=== PATIENT | male | born 1955 | race Two or more races ===

== ENCOUNTER 2018-08-15 09:58 | Inpatient (IN) | payer MEDICAID ==
[~2018-08-15] VITALS: Ht 177.8 cm; Wt 90.7 kg
--- NOTE | 2018-08-15 09:58 | NUR ---
PT BIB FROM [facility] FOR FIRST TIME SEIZURE; PT [id number], PT ON MONITOR, -SOB, NAD NOTED, PENDING MD CADE
--- NOTE | 2018-08-15 10:08 | NUR ---
DR GOEL AT BEDSIDE FOR EVAL.
[2018-08-15] MEDS ORDERED: ACETAMINOPHEN ES 500 MG TABLET ONE (10:23)
--- NOTE | 2018-08-15 10:26 | NUR ---
PT TO RADIOLOGY FOR HEAD CT SCAN VIA [facility].
[2018-08-15] MEDS ORDERED: IV NS 0.9% 1,000 ML BAG IV ONE (10:30)
[2018-08-15] MEDS ORDERED: ACETAMINOPHEN ES 500 MG TABLET GT ONE (10:30)
[2018-08-15 10:31] LABS: BASOPHILS # (AUTO) 0.1 /CMM (0.0-0.2); BASOPHILS % (AUTO) 1.1 % (0.0-2.0); EOSINOPHILS % (AUTO) 1.5 % (0.0-6.0); HEMATOCRIT 42 % (39-51); HEMOGLOBIN 14.1 g/dL (13.5-17.5); LYMPHOCYTES # (AUTO) 0.6 /CMM (0.8-4.8); LYMPHOCYTES % (AUTO) 7.3 % (20.0-44.0); MEAN CORPUSCULAR HGB CONC 33 g/dl (31.0-36.0); MEAN CORPUSCULAR VOLUME 95 fL (80-96); NEUTROPHILS # (AUTO) 6.9 /CMM (1.8-8.9); NEUTROPHILS % (AUTO) 79.1 % (43.0-81.0); PLATELET COUNT (AUTO) 146 /CMM (150-450); RED BLOOD CELL COUNT(AUTO) 4.46 MIL/uL (4.5-6.0); WHITE BLOOD COUNT (AUTO) 8.8 K/uL (4.3-11.0)
[2018-08-15] MEDS ORDERED: POLY15DR40 EACHEYE (10:36)
[2018-08-15] MEDS ORDERED: BUDE0.5A4 IH (10:36)
[2018-08-15] MEDS ORDERED: MULT-447 GT (10:36)
[2018-08-15] MEDS ORDERED: METO25TA20 GT (10:36)
[2018-08-15] MEDS ORDERED: HEPA50008 SQ (10:36)
[2018-08-15] MEDS ORDERED: DOCU50LI GT (10:36)
[2018-08-15] MEDS ORDERED: NA P133E RC (10:36)
[2018-08-15] MEDS ORDERED: ACET650S26 GT (10:36)
[2018-08-15] MEDS ORDERED: ASPI-1169 GT (10:36)
[2018-08-15] MEDS ORDERED: ATOR10TA GT (10:36)
[2018-08-15] MEDS ORDERED: ALBU2.5V38 IH ×2 (10:36)
[2018-08-15] MEDS ORDERED: ACET-2605 GT (10:36)
[2018-08-15] MEDS ORDERED: DILT180C GT (10:36)
[2018-08-15] MEDS ORDERED: LACT100027 GT (10:36)
[2018-08-15] MEDS ORDERED: BETH50TA8 GT (10:36)
[2018-08-15] MEDS ORDERED: TRAM50TA2 GT (10:36)
[2018-08-15] MEDS ORDERED: MAGN400O6 GT (10:36)
[2018-08-15] MEDS ORDERED: TAMS-12 GT (10:36)
[2018-08-15] MEDS ORDERED: BISA10SU11 RC (10:36)
[2018-08-15] MEDS ORDERED: NUTR1PAC14 GT (10:36)
--- NOTE | 2018-08-15 10:40 | NUR ---
[facility] 112-2.
[2018-08-15 10:52] LABS: CARBON DIOXIDE 29 mmol/L (21-32); CHLORIDE 102 mmol/L (98-107); GLUCOSE 107 mg/dL (74-106); POTASSIUM 4.1 mmol/L (3.5-5.1); SODIUM SERUM 133 mmol/L (136-145); UREA NITROGEN, BLOOD 35 mg/dL (7-18)
[2018-08-15 10:57] LABS: ALANINE AMINOTRANSFERASE 38 U/L (12-78); ALBUMIN 2.7 g/dL (3.4-5.0); ALKALINE PHOSPHATASE 108 U/L (46-116); ASPARTATE AMINOTRANSFERASE 27 U/L (15-37); BILIRUBIN,DIRECT 0.1 mg/dL (0.0-0.2); BILIRUBIN,TOTAL 0.3 mg/dL (0.2-1.0); CALCIUM, SERUM 8.1 mg/dL (8.5-10.1); TOTAL PROTEIN, SERUM 7.4 g/dL (6.4-8.2)
[2018-08-15 11:15] LABS: APPEARANCE,URINE Clear (CLEAR); BILIRUBIN,URINE Negative (NEGATIVE); BLOOD, URINE Small Ery/uL (NEGATIVE); COLOR,URINE Yellow (YELLOW); KETONES,URINE Negative (NEGATIVE); LEUKOCYTE ESTERASE ,URINE Negative (NEGATIVE); NITRITE, URINE Negative (NEGATIVE); PROTEIN,URINE 30 mg/dl (NEGATIVE); UGLUCOSE Negative (NEGATIVE); UROBILINOGEN,URINE 0.2 EU/dL (0.2)
--- NOTE | 2018-08-15 11:31 | NUR ---
REPORT GIVEN TO MARY HURTADO FOR OANH; PT WILL BE TRANSPORTED TO 1ST FLOOR [facility]
[2018-08-15 11:34] LABS: BACTERIA,URINE Few /HPF (None Seen); RBC,URINE 0-2 /HPF (0-2); SQUAMOUS EPITHELIAL CELL,UR Rare /HPF (None Seen); WBC,URINE 0-2 /HPF (0-3)
[2018-08-15 12:00] VITALS: BP 133/83
[2018-08-15] MEDS ORDERED: VANCOMYCIN 1 GM in IV D5W 250 ML IV ONE (12:00)
[2018-08-15] MEDS ORDERED: D5W IV ONE (12:00)
[2018-08-15] MEDS ORDERED: BISACODYL SUPP (10 MG) 10 MG/SUPP.RECT SUPP.RECT RC PRN (12:00)
[2018-08-15] MEDS ORDERED: CEFTRIAXONE 2 G in IV D5W 100 ML IV ONE (12:00)
[2018-08-15] MEDS ORDERED: ACYCLOVIR IV ONE (12:00)
--- NOTE | 2018-08-15 12:23 | NUR ---
PT TRANSPORTED TO [facility] VIA [facility]
[2018-08-15] MEDS ORDERED: ZOLPIDEM TARTRATE 5 MG TABLET PO PRN (12:30)
[2018-08-15] MEDS ORDERED: ACETAMINOPHEN 325 MG TABLET PO PRN (12:30)
[2018-08-15] MEDS ORDERED: Z GUARD REMEDY 2 OZ OINT TP PRN (12:30)
[2018-08-15] MEDS ORDERED: ONDANSETRON HCL/PF 4 MG/2 ML VIAL IVP PRN (12:30)
[2018-08-15] MEDS ORDERED: HYDROCODONE/APAP 5/325MG 1 EACH TABLET PO PRN (12:30)
[2018-08-15] MEDS ORDERED: ALBUTEROL FS 2.5 MG/0.5 ML VIAL.NEB NEB PRN (12:30)
[2018-08-15] MEDS ORDERED: MAG HYDROX/AL HYDROX/SIMETH 30 ML UDC PO PRN (12:30)
[2018-08-15] MEDS ORDERED: MAGNESIUM HYDROXIDE 30 ML UDC PO PRN (12:30)
[2018-08-15] MEDS ORDERED: MORPHINE SULFATE INJ 2 MG/ML DISP.SYRIN IV PRN (12:30)
[2018-08-15] MEDS ORDERED: LORAZEPAM INJ 2 MG/ML VIAL IV PRN (12:30)
--- NOTE | 2018-08-15 12:30 | NUR ---
RN NOTES RECEIVED PT FROM ER. PATIENT ARRIVED IN THE UNIT ACCOMPANIED BY BRYANT BHARDWAJ. RECEIVED REPORT, PATIENT WILL BE UNDER THE CARE OF LEELA ASH. PATIENT IN STABLE CONDITION. PATIENT ABLE TO RESPOND TO TACTILE STIMULI. NO PAIN OR FACIAL GRIMACING AT THIS TIME. RESPIRATION EVEN AND UNLABORED. SKIN IS DRY WARM TO TOUCH. PATIENT ON TRACH PORTEX #7 ON COOL AEROSOL. TOLERATED WELL. O2 SAT AROUND 99%. NO ISOLATION .PATIENT WAS PLACED ON THE BED AND INITIAL PICTURES WAS TAKEN AND WAS PLACED IN THE CHART. PATIENT WAS NOTED WITH A LEFT HAND IV ACCESS #20G. INTACT AND PATENT. FLUSHING WELL. NO S/S OF INFILTRATION AND INFECTION. ALL NEEDS ANTICIPATED. KEPT CLEAN AND DRY. CALL LIGHT WITHIN REACHED. WILL CONTINUE TO MONITOR.
[2018-08-15] MEDS ORDERED: INSULIN REGULAR, HUMAN 100 UNIT/ML 3 ML VIAL SQ PRN (13:00)
[2018-08-15] MEDS ORDERED: DEXTROSE 50%-WATER 50 ML DISP.SYRIN IV PRN (13:00)
[2018-08-15] MEDS: IV NS 0.9% 1,000 ML IV PRN (13:23)
[2018-08-15] MEDS ORDERED: DILTIAZEM HCL 25 MG IV IV ONE (13:30)
[2018-08-15] MEDS: ENOXAPARIN SODIUM 40 MG/0.4 ML DISP.SYRIN SQ SCH (13:47)
--- NOTE | 2018-08-15 14:43 | NUR ---
RN NOTES PATIENT SEEN AND EVALUATED BY DR. WEAVER WITH NO NEW ORDERS AT THIS TIME. PATIENT REMAINS IN STABLE CONDITION. WILL CONTINUE TO MONITOR.
[2018-08-15 16:00] VITALS: BP 176/81
[2018-08-15] MEDS ORDERED: DOCUSATE SODIUM 100 MG CAPSULE PO SCH (17:00)
[2018-08-15] MEDS: DOCUSATE SODIUM LIQ 100 MG/10 ML UDC GT SCH (17:06)
[2018-08-15] MEDS: TAMSULOSIN 0.4 MG CAP.SR.24H GT SCH (17:07)
[2018-08-15] MEDS: BETHANECHOL CHLORIDE (25 MG) 25 MG TABLET PO SCH (17:07)
[2018-08-15] MEDS: BLOOD SUGAR DIAGNOSTIC 1 EACH STRIP VI SCH ×2 (17:07→22:04)
[2018-08-15] MEDS: ASPIRIN 81 MG TAB.CHEW GT SCH (17:18)
--- NOTE | 2018-08-15 19:09 | NUR ---
RN CLOSING NOTES PATIENT CONTINUES TO REMAIN IN STABLE CONDITION. EEG WAS DONE. PATIENT WAS SEEN AND EVALUATED BY DR. PEREZ WITH NO NEW ORDERS AT THIS TIME. NO PAIN OR ACUTE DISTRESS AT THIS TIME. RESPIRATION EVEN AND UNLABORED. SKIN IS DRY WARM TO TOUCH. IV ACCESS ON LEFT HAND INTACT AND PATENT. FLUSHING WELL. GT INTACT AND PATENT WELL. PATIENT ON JEVITY 1.2 @ 70CC/HR. HOB ELEVATED AT ALL TIMES TO PREVENT ASPIRATION. ALL NEEDS ANTICIPATED. KEPT CLEAN AND DRY. CALL LIGHT WITHIN REACHED. PROVIDED SAFETY AND COMFORT. WILL CONTINUE TO MONITOR. ENDORSED TO PM NURSE FOR OANH.
--- NOTE | 2018-08-15 19:15 | NUR ---
[facility] RN OPENING NOTES RECEIVED BEDSIDE REPORT FROM BRYANT SOLIS. PATIENT IN BED, OBTUNDED, REACTS TO TACTILE STIMULI. NO SEIZURE ACTIVITY NOTED. NO PAIN OR ACUTE DISTRESS AT THIS TIME. ON T-PIECE COOL AEROSOL, TOLERATING WELL, SATURATION 97%. RESPIRATION EVEN AND UNLABORED. SKIN IS DRY WARM TO TOUCH. IV ACCESS ON LEFT HAND 20G, INTACT AND PATENT, FLUSHING WELL, FLUIDS RUNNING ORDERED, NO INFILTRATION NOTED. GT INTACT AND PATENT WELL, NO RESIDUAL NOTED, FEEDING JEVITY 1.2 @ 70CC/HR. CONDOM CATH IN PLACE. HOB ELEVATED. SAFETY MEASURES IN PLACE. BED LOCKED AND IN LOWEST POSITION. CALL LIGHT WITHIN REACH. WILL CONT TO MONITOR CLOSELY. Addendum: 08/15/18 at 2106 by RUBY MEDEROS RN PATIENT ON TELE MONITOR AFLUTTER WITH HR 110S.
[2018-08-15] MEDS: JEVITY 1.2 CAL 1,000 ML BOTTLE GT PRN (19:28)
[2018-08-15 20:00] VITALS: BP 118/81
[2018-08-15] MEDS: IPRATROPIUM NEB FS 0.5 MG/2.5 ML AMPUL.NEB NEB SCH (20:02)
[2018-08-15] MEDS: ATORVASTATIN 10 MG TABLET GT SCH (22:30)
[2018-08-16] VITALS: BP 124/87
--- NOTE | 2018-08-16 00:55 | NUR ---
[facility] RN NOTES PATIENT ON TELE MONITOR AFLUTTER WITH HR 125-126. HOSPITALIST NOTIFIED. NO NEW ORDERS. WILL CONT TO MONITOR PATIENT.
[2018-08-16] MEDS: IPRATROPIUM NEB FS 0.5 MG/2.5 ML AMPUL.NEB NEB SCH ×4 (01:31→20:17)
[2018-08-16] MEDS: IV NS 0.9% 1,000 ML IV PRN (02:38)
[2018-08-16 04:00] VITALS: BP 139/88
--- NOTE | 2018-08-16 07:23 | NUR ---
[facility] RN CLOSING NOTES PATIENT IN BED, OBTUNDED, REACTS TO TACTILE STIMULI. NO SEIZURE ACTIVITY THROUGHOUT SHIFT. ON T-PIECE COOL AEROSOL, TOLERATING WELL, SATURATION 100%. RESPIRATION EVEN AND UNLABORED. IV ACCESS ON LEFT HAND 20G, INTACT AND PATENT, FLUSHING WELL, FLUIDS RUNNING ORDERED, NO INFILTRATION NOTED. GT INTACT AND PATENT WELL, MINIMAL RESIDUAL NOTED, FEEDING JEVITY 1.2 @ 60CC/HR, GOAL IS 70ML/HR. CONDOM CATH IN PLACE, DRAINING CLEAR YELLOW URINE. HOB ELEVATED. SAFETY MEASURES IN PLACE. BED LOCKED AND IN LOWEST POSITION. REPOSITIONED Q2H. CALL LIGHT WITHIN REACH. ALL MD ORDERS ATTENDED. ALL NEEDS ANTICIPATED AND MET. ENDORSED TO AM RN FOR OANH.
--- NOTE | 2018-08-16 07:30 | NUR ---
[facility] RN OPENING NOTES PATIENT IN BED SLEEPING COMFORTABLY. EASILY AROUSABLE. NO PAIN OR ACUTE DISTRESS AT THIS TIME. HOB OF BED ELEVATED AT ALL TIMES. PATIENT CONTINUES ON COOL AEROSOL, TOLERATING WELL. NO RESPIRATORY DISTRESS AT THIS TIME. PATIENT ON TELE MONITORING WELL. SINUS RHYTHM AROUND 80-90'S HR. IV ACCESS ON JOLENE PICC S/L, INTACT AND PATENT. FLUSHING WELL. GRAEME AV SHUNT NOTED, INTACT WELL. GTUBE IN PLACE, FLUSHED AND PATENT, MINIMAL RESIDUAL NOTED, GTUBE FEEDING RUNNING AT 40CC/HR, TOLERATING WELL. ALL NEEDS ANTICIPATED. KEPT CLEAN AND DRY. CALL LIGHT WITHIN REACHED. BED LOCKED AND IN LOWEST POSITION. SAFETY MEASURES IN PLACE. REPOSITION Q2HRS. WILL CONTINUE TO MONITOR PT CLOSELY. Addendum: 08/16/18 at 0742 by JOSE CHADWICK RN [facility] RN OPENING NOTES PATIENT IN BED SLEEPING COMFORTABLY. EASILY AROUSABLE. NO PAIN OR ACUTE DISTRESS AT THIS TIME. HOB OF BED ELEVATED AT ALL TIMES. PATIENT CONTINUES ON COOL AEROSOL, TOLERATING WELL. NO RESPIRATORY DISTRESS AT THIS TIME. PATIENT ON TELE MONITORING WELL. PATIENT IS NOTED WITH A-FLUTTER AROUND 120'S HR. ACCORDING TO NIGHT NURSE SHANA,JEWELRY CUTTER IS AWARE AND TO JUST MONITOR FOR NOW SINCE PATIENT IS ASYMPTOMATIC. IV ACCESS ON LEFT HAND #20G, INTACT AND PATENT. FLUSHING WELL. GTUBE IN PLACE, FLUSHED AND PATENT, MINIMAL RESIDUAL NOTED, GTUBE FEEDING IS JEVITY 1.2 @ 70CC/HR, TOLERATING WELL. ALL NEEDS ANTICIPATED. KEPT CLEAN AND DRY. CALL LIGHT WITHIN REACHED. BED LOCKED AND IN LOWEST POSITION. SAFETY MEASURES IN PLACE. REPOSITION Q2HRS. WILL CONTINUE TO MONITOR PATIENT CLOSELY
[2018-08-16 07:32] LABS: BASOPHILS % (AUTO) 0.8 % (0.0-2.0); EOSINOPHILS % (AUTO) 4.4 % (0.0-6.0); HEMATOCRIT 39 % (39-51); HEMOGLOBIN 12.9 g/dL (13.5-17.5); LYMPHOCYTES % (AUTO) 17.5 % (20.0-44.0); MEAN CORPUSCULAR HGB CONC 33 g/dl (31.0-36.0); MEAN CORPUSCULAR VOLUME 94 fL (80-96); MONOCYTES # (AUTO) 0.9 /CMM (0.1-1.30); MONOCYTES % (AUTO) 15.4 % (2.0-12.0); NEUTROPHILS # (AUTO) 3.4 /CMM (1.8-8.9); NEUTROPHILS % (AUTO) 61.9 % (43.0-81.0); PLATELET COUNT (AUTO) 133 /CMM (150-450); RED BLOOD CELL COUNT(AUTO) 4.16 MIL/uL (4.5-6.0); WHITE BLOOD COUNT (AUTO) 5.5 K/uL (4.3-11.0)
[2018-08-16 07:47] LABS: ALBUMIN 2.5 g/dL (3.4-5.0); CALCIUM, SERUM 8.7 mg/dL (8.5-10.1); PHOSPHORUS 3.4 mg/dL (2.5-4.9); POTASSIUM 4.2 mmol/L (3.5-5.1); TOTAL PROTEIN, SERUM 6.9 g/dL (6.4-8.2)
[2018-08-16 07:59] LABS: BILIRUBIN,TOTAL 0.4 mg/dL (0.2-1.0)
[2018-08-16 08:00] VITALS: BP 114/93
[2018-08-16 08:01] LABS: THYROID STIMULATING HORMONE 2.448 uIU/mL (0.358-3.74)
[2018-08-16] MEDS: MULTIVIT W/MINERALS 1 TAB TABLET PO SCH (08:21)
[2018-08-16] MEDS: METOPROLOL TARTRATE 25 MG TABLET GT SCH (08:21)
[2018-08-16] MEDS: BLOOD SUGAR DIAGNOSTIC 1 EACH STRIP VI SCH ×4 (08:21→23:20)
[2018-08-16] MEDS: DOCUSATE SODIUM LIQ 100 MG/10 ML UDC GT SCH ×2 (08:21→17:09)
[2018-08-16] MEDS: PANTOPRAZOLE 40 MG TABLET.DR PO SCH (08:21)
[2018-08-16] MEDS: TAMSULOSIN 0.4 MG CAP.SR.24H GT SCH ×2 (08:22→17:09)
[2018-08-16] MEDS: DILTIAZEM HCL CD 180 MG PO SCH (08:22)
[2018-08-16] MEDS: BETHANECHOL CHLORIDE (25 MG) 25 MG TABLET PO SCH ×2 (08:22→17:09)
[2018-08-16] MEDS: ENOXAPARIN SODIUM 40 MG/0.4 ML DISP.SYRIN SQ SCH (08:26)
[2018-08-16 08:50] LABS: BAND % (MANUAL) 5 % (0.0-5.0); EOSINOPHILS % (MANUAL) 6 % (0-4); LYMPHOCYTES % (MANUAL) 11 % (16-48); MONOCYTES % (MANUAL) 18 % (0-11.0); NEUTROPHILS % (MANUAL) 60 (42-76)
[2018-08-16] MEDS: LEVETIRACETAM (500MG) 250 MG in IV NS 0.9% 100 ML IV SCH ×2 (09:52→21:53)
--- NOTE | 2018-08-16 11:08 | NUR ---
WOUND CARE CONSULT: PT PRESENTS WITH SEVERELY CONTRACTED LEFT LOWER EXTREMITY, MAKING OFFLOADING DIFFICULT. PT ALSO NOTED TO HAVE SACRAL SCAR, MULTIPLE BRUISES AND DISCOLORATIONS TO EXTREMITIES, GROIN AND PERINEAL RASH AND AXILLARY REDNESS, ALL PRESENT ON ADMISSION. RECOMMENDATIONS MADE FOR SKIN PROTECTION. DISCUSSED WITH NURSING STAFF. FIRST STEP LOW AIRLOSS MATTRESS ORDERED. PT IS INCONTINENT AND IMMOBILE WITH CURRENT ABDI SCORE OF 11. WILL SEE PRN. [place] IN AGREEMENT WITH PLAN OF CARE. Addendum: 08/16/18 at 1109 by LOI BROWN WNDNU Amended: Links added.
[2018-08-16 12:00] VITALS: BP 141/91
[2018-08-16 16:00] VITALS: BP_SYST 135; BP_DIAS 72; BP_DIAS 94
[2018-08-16] MEDS: ASPIRIN 81 MG TAB.CHEW GT SCH (17:09)
[2018-08-16] MEDS: CLOTRIMAZOLE 1% 15 GM TUBE TP SCH (17:10)
[2018-08-16] MEDS: JEVITY 1.2 CAL 1,000 ML BOTTLE GT PRN (17:36)
--- NOTE | 2018-08-16 18:55 | NUR ---
RN CLOSING NOTES PATIENT CONTINUES TO REMAIN IN STABLE CONDITION. PROVIDED COMFORT AND SAFETY. NO PAIN OR ACUTE DISTRESS AT THIS TIME. SKIN IS DRY WARM TO TOUCH. IV ACCESS #18G ON LEFT HAND INTACT AND PATENT. FLUSHING WELL. ALSO PATIENT ON TRACH WITH COOL AEROSOL. TOLERATED WELL. RESPIRATION EVEN AND UNLABORED. NO SOB. GT FEEDING ON GOING WELL. INTACT AND PATENT. NO RESIDUALS NOTED. HOB ELEVATED AT ALL TIMES TO PREVENT ASPIRATION. PATIENT ABLE TO TOLERATE FEEDING AND MEDS WELL. NO ADVERSE REACTIONS AT THIS TIME. ALL NEEDS ANTICIPATED. KEPT CLEAN AND DRY. REPOSITIONED Q2HRS. CALL LIGHT WITHIN REACHED. BED LOCKED AND IN LOWEST POSITION. WILL CONTINUE TO MONITOR. ENDORSED TO PM NURSE FOR OANH.
--- NOTE | 2018-08-16 19:12 | NUR ---
STEEL FITTER NOTE PATIENT REPORT GIVEN BEDSIDE. PATIENT IN BED A/O X 1, OBTUNDED, CONTRACTED IN ALL EXTREMITIES. PATIENT OPENS EYES TO STIMULI. PATIENT TOLERATING COOL AEROSOL SETTINGS SATURATION 98 BREATHING EVEN AND UNLABORED. PATIENT HR 120'S A FLUTTER ON THE MONITOR. PATIENT IV SIDE 18 G LEFT HAND PATENT NO S/S OF INFECTION INFILTRATION RUNNING 75 ML/HR. GT FEEDING RUNNING 60 ML/HR NO RESIDUAL NOTED. HOB HIGH ASPIRATIONS/ SEIZURE PRECAUTIONS IN PLACE. PATIENT TURNED AND SUCTIONED. THICK YELLOWISH WHITE SECRETIONS NOTED. PATIENT ABLE TO EXPECTORATE. RN WILL CONTINUE TO MONITOR AT THIS TIME.
[2018-08-16 20:00] VITALS: BP 135/84
[2018-08-16] MEDS: ATORVASTATIN 10 MG TABLET GT SCH (21:54)
[2018-08-17] VITALS: BP 146/86
--- NOTE | 2018-08-17 | NUR ---
SALES AND MARKETING COORDINATOR NOTE PATIENT VOIDED AND HAD ONE BOWEL MOVEMENT, PATIENT BATHED, ORAL CARE GIVEN, WAQAS CARE GIVEN PATIENT REPOSITIONED. PATIENT SUCTIONED NO S/S OF DISTRESS
[2018-08-17] MEDS: IPRATROPIUM NEB FS 0.5 MG/2.5 ML AMPUL.NEB NEB SCH ×4 (01:25→19:44)
[2018-08-17 04:00] VITALS: BP 160/87
[2018-08-17] MEDS: JEVITY 1.2 CAL 1,000 ML BOTTLE GT PRN (06:46)
[2018-08-17] MEDS: IV NS 0.9% 1,000 ML IV PRN (06:46)
--- NOTE | 2018-08-17 06:58 | NUR ---
WINDOWS 7 DEPLOYMENT LEAD NOTE PATIENT BATHED ORAL CARE GIVEN. PATIENT REMAINS STABLE CARE RENDERED ORDERED WILL ENDORSE TO AM POC FOR OANH.
--- NOTE | 2018-08-17 07:30 | NUR ---
RN NOTES RECEIVED PATIENT IN BED WITH BREATHING NORMAL, EVEN AND UNLABORED. NO SOB NOTED. NO ACUTE DISTRESS NOTED. TELE MONITOR REVEALS A FLUTTER , WY=[id number]. IV IS PATENT AND INTACT. KEPT CLEAN, DRY AND COMFORTABLE. ALL NEEDS ATTENDED. SAFETY MEASURE OBSERVED. CALL LIGHT WITH IN REACH. WILL CONT TO MONITOR.
[2018-08-17 07:56] LABS: BASOPHILS % (AUTO) 0.9 % (0.0-2.0); EOSINOPHILS % (AUTO) 4.8 % (0.0-6.0); HEMATOCRIT 38 % (39-51); HEMOGLOBIN 12.6 g/dL (13.5-17.5); LYMPHOCYTES # (AUTO) 0.8 /CMM (0.8-4.8); LYMPHOCYTES % (AUTO) 14.4 % (20.0-44.0); MEAN CORPUSCULAR HGB CONC 33 g/dl (31.0-36.0); MEAN CORPUSCULAR VOLUME 95 fL (80-96); MONOCYTES # (AUTO) 0.7 /CMM (0.1-1.30); MONOCYTES % (AUTO) 13.1 % (2.0-12.0); NEUTROPHILS # (AUTO) 3.5 /CMM (1.8-8.9); NEUTROPHILS % (AUTO) 66.8 % (43.0-81.0); PLATELET COUNT (AUTO) 132 /CMM (150-450); RED BLOOD CELL COUNT(AUTO) 4.03 MIL/uL (4.5-6.0); WHITE BLOOD COUNT (AUTO) 5.3 K/uL (4.3-11.0)
[2018-08-17 08:00] VITALS: BP 117/76
[2018-08-17 08:02] LABS: CALCIUM, SERUM 8.6 mg/dL (8.5-10.1)
[2018-08-17] MEDS: LEVETIRACETAM (500MG) 250 MG in IV NS 0.9% 100 ML IV SCH ×2 (08:53→21:22)
[2018-08-17] MEDS: BLOOD SUGAR DIAGNOSTIC 1 EACH STRIP VI SCH ×4 (08:53→21:23)
[2018-08-17] MEDS: TAMSULOSIN 0.4 MG CAP.SR.24H GT SCH ×2 (08:54→18:24)
[2018-08-17] MEDS: DOCUSATE SODIUM LIQ 100 MG/10 ML UDC GT SCH ×2 (08:54→18:24)
[2018-08-17] MEDS: PANTOPRAZOLE 40 MG TABLET.DR PO SCH (08:54)
[2018-08-17] MEDS: BETHANECHOL CHLORIDE (25 MG) 25 MG TABLET PO SCH ×2 (08:54→18:24)
[2018-08-17] MEDS: DILTIAZEM HCL CD 180 MG PO SCH (08:55)
[2018-08-17] MEDS: METOPROLOL TARTRATE 25 MG TABLET GT SCH (08:55)
[2018-08-17] MEDS: MULTIVIT W/MINERALS 1 TAB TABLET PO SCH (08:55)
[2018-08-17] MEDS: ENOXAPARIN SODIUM 40 MG/0.4 ML DISP.SYRIN SQ SCH (08:56)
[2018-08-17] MEDS: CLOTRIMAZOLE 1% 15 GM TUBE TP SCH ×2 (09:01→18:28)
[2018-08-17 12:00] VITALS: BP 122/82
[2018-08-17 16:00] VITALS: BP 137/91
[2018-08-17] MEDS: ASPIRIN 81 MG TAB.CHEW GT SCH (18:24)
--- NOTE | 2018-08-17 19:10 | NUR ---
RN NOTES PATIENT ENDORSED TO NEXT SHIFT IN STABLE CONDITION FOR CONTINUITY OF CARE.
--- NOTE | 2018-08-17 19:50 | NUR ---
TELE/RN OPENING NOTES PT RECEIVED WITH EYES CLOSED, RESPONSIVE TO TACTILE STIMULI. PT IS OBTUNDED AT BASELINE. ON 8L O2 VIA TPIECE COOL AEROSOL. ON TELE MONITOR SHOWING AFLUTTER, HR 112. IV TO LEFT HAND PATENT AND INTACT RUNNING IVF ORDERED. GT FEEDING RUNNING JEVITY AT 70CC/HR, NO RESIDUALS NOTED AT THIS TIME. BED IN LOW/LOCKED POSITION WITH CALL LIGHT IN REACH. HOB ELEVATED, AND BILAT. UPPER SIDE RAILS IN PLACE. WILL CONTINUE TO MONITOR
[2018-08-17 20:00] VITALS: BP 124/74
--- NOTE | 2018-08-17 20:15 | NUR ---
TELE/RN NOTES LEON BANSAL NP AT BEDSIDE TO ASSESS PT. NOTIFIED HER THAT DAY SHIFT RN WAS ABLE TO DECLOGG THE GTUBE AND IT IS FUNCTIONING NOW. SHE SAID TO DISREGARD HER ORDERS THEN
[2018-08-17] MEDS: ATORVASTATIN 10 MG TABLET GT SCH (21:23)
[2018-08-17] MEDS: *INSULIN REGULAR(HUMULIN R)HUM 100 UNIT/ML VIAL SQ PRN (21:39)
[2018-08-18] VITALS: BP 142/89
[2018-08-18] MEDS: IPRATROPIUM NEB FS 0.5 MG/2.5 ML AMPUL.NEB NEB SCH ×4 (02:03→19:49)
--- NOTE | 2018-08-18 02:57 | NUR ---
TELE/RN NOTES PT ASLEEP, IN NO ACUTE RESPIRATORY DISTRESS. TURNED PT, HEELS OFFLOADED. SUCTIONED PT
[2018-08-18 04:00] VITALS: BP 149/84
[2018-08-18] MEDS: JEVITY 1.2 CAL 1,000 ML BOTTLE GT PRN ×2 (04:33→19:22)
[2018-08-18] MEDS: BLOOD SUGAR DIAGNOSTIC 1 EACH STRIP VI SCH ×4 (06:33→22:49)
[2018-08-18] MEDS: PANTOPRAZOLE 40 MG TABLET.DR PO SCH (06:33)
[2018-08-18] MEDS: IV NS 0.9% 1,000 ML IV PRN (06:34)
[2018-08-18 06:41] LABS: CALCIUM, SERUM 8.1 mg/dL (8.5-10.1); POTASSIUM 3.8 mmol/L (3.5-5.1)
--- NOTE | 2018-08-18 06:50 | NUR ---
TELE/RN CLOSING NOTES PT ASLEEP, OPENS EYES TO TACTILE STIMULI. REMAINS ON COOL AEROSOL VIA T-PIECE AT 8L O2. BREATHING EVEN AND UNLABORED. SUCTIONED PRN. ON TELE MONITOR SHOWING A.FLUTTER 113. CONDOM CATH IN PLACE AND DRAINING TO GRAVITY. IV TO LEFT HAND PATENT AND INTACT RUNNING IVF ORDERED. GT FEEDING RUNNING JEVITY AT 70CC/HR WITH NO RESIDUALS NOTED. HOB ELEVATED AT ALL TIMES FOR ASPIRATION PRECAUTIONS. SEIZURE PRECAUTIONS IMPLEMENTED. NO EPISODES OF SEIZURES DURING SHIFT. NO INSULIN COVERAGE PER SLIDING SCALE. TURNED/REPOSITIONED Q2H, HEELS OFFLOADED. BILAT. UPPER SIDE RAILS IN PLACE. BED REMAINS IN LOW/LOCKED POSITION WITH CALL LIGHT IN REACH. WILL ENDORSE TO DAY SHIFT RN OANH.
[2018-08-18 06:51] LABS: BASOPHILS % (AUTO) 0.6 % (0.0-2.0); EOSINOPHILS % (AUTO) 4.9 % (0.0-6.0); HEMATOCRIT 38 % (39-51); HEMOGLOBIN 12.5 g/dL (13.5-17.5); LYMPHOCYTES % (AUTO) 17.3 % (20.0-44.0); MEAN CORPUSCULAR HGB CONC 33 g/dl (31.0-36.0); MEAN CORPUSCULAR VOLUME 95 fL (80-96); MONOCYTES # (AUTO) 0.9 /CMM (0.1-1.30); NEUTROPHILS # (AUTO) 3.7 /CMM (1.8-8.9); NEUTROPHILS % (AUTO) 62.2 % (43.0-81.0); PLATELET COUNT (AUTO) 144 /CMM (150-450); RED BLOOD CELL COUNT(AUTO) 3.99 MIL/uL (4.5-6.0); WHITE BLOOD COUNT (AUTO) 5.9 K/uL (4.3-11.0)
[2018-08-18 08:00] VITALS: BP 141/98
--- NOTE | 2018-08-18 08:00 | NUR ---
TELE/RN NOTES PT ASLEEP, OPENS EYES TO TACTILE STIMULI. REMAINS ON COOL AEROSOL VIA T-PIECE AT 8L O2.35% BREATHING EVEN AND UNLABORED. SUCTIONED PRN. ON TELE MONITOR SHOWING A.FLUTTER 102 CONDOM CATH CHANGED AND DRAINING TO GRAVITY. IV TO LEFT HAND PATENT AND INTACT RUNNING IVF ORDERED. GT FEEDING RUNNING JEVITY AT 70CC/HR WITH NO RESIDUALS NOTED. HOB ELEVATED AT ALL TIMES FOR ASPIRATION PRECAUTIONS. SEIZURE PRECAUTIONS IMPLEMENTED. . TURNED/REPOSITIONED Q2H,, RT AT BEDSIDE BREATHING TX DONE ORDERED
[2018-08-18] MEDS: MULTIVIT W/MINERALS 1 TAB TABLET PO SCH (08:14)
[2018-08-18] MEDS: BETHANECHOL CHLORIDE (25 MG) 25 MG TABLET PO SCH ×2 (08:14→16:20)
[2018-08-18] MEDS: TAMSULOSIN 0.4 MG CAP.SR.24H GT SCH ×2 (08:14→16:21)
[2018-08-18] MEDS: METOPROLOL TARTRATE 25 MG TABLET GT SCH (08:15)
[2018-08-18] MEDS: DOCUSATE SODIUM LIQ 100 MG/10 ML UDC GT SCH ×2 (08:15→16:21)
[2018-08-18] MEDS: DILTIAZEM HCL CD 180 MG PO SCH (08:15)
[2018-08-18] MEDS: ENOXAPARIN SODIUM 40 MG/0.4 ML DISP.SYRIN SQ SCH (08:16)
[2018-08-18] MEDS: CLOTRIMAZOLE 1% 15 GM TUBE TP SCH ×2 (08:19→16:21)
[2018-08-18] MEDS: LEVETIRACETAM (500MG) 250 MG in IV NS 0.9% 100 ML IV SCH ×2 (08:39→20:39)
[2018-08-18 09:33] LABS: BAND % (MANUAL) 1 % (0.0-5.0); EOSINOPHILS % (MANUAL) 2 % (0-4); LYMPHOCYTES % (MANUAL) 18 % (16-48); MONOCYTES % (MANUAL) 19 % (0-11.0); NEUTROPHILS % (MANUAL) 60 (42-76)
--- NOTE | 2018-08-18 10:00 | NUR ---
ACOUSTICAL TILE PATTERNMAKER NOTE SEEN BY VANI RN DOBBY LOOMS PEGGER AWARE THAT PER FAMILY WANTS TO DO MRI BRAIN .STATED THAT NEUROLOGIST WILL COME, WILL RECOMMENDED . WILL CONT TO MONITOR CLOSELY
[2018-08-18 12:00] VITALS: BP 109/70
--- NOTE | 2018-08-18 13:00 | NUR ---
telephone information clerk ote cont turn reposition ,on trach to cooler aerosol 35%, no sob trach suction done , all needs attended will cont to monitor closely
[2018-08-18 16:00] VITALS: BP 151/74
[2018-08-18] MEDS: ASPIRIN 81 MG TAB.CHEW GT SCH (17:03)
--- NOTE | 2018-08-18 17:07 | NUR ---
NURSING COORDINATOR NOTE LEON RN GUIDANCE SERVICES COORDINATOR GI AT BEDSIDE AWARE THAT GTUBE IS WORKING WELL ,STATED NO NEED TO PLACE NEW ONE AT THIS TIME ,WILL CONT TO MONITOR CLOSELY
--- NOTE | 2018-08-18 18:44 | NUR ---
CASTING SORTER NOTE PATIENT IN BED , WITH TRACH TO COOLER AEROSOL WITH 35% OF O2 , NO SOB NOTED AT THIS TIME TRACH SUCTION DONE , BED IN LOWEST AND LOCKED POSITION , AMBU BAG AT HOB , KEEP HOB ELEVATED AT ALL TIME , ON G TUBE FEEDING AT 70 ML PER HOUR , TOLERATED WELL, WITH RESIDUAL 10 ML AT THIS TIME , WITH CONDOM CATH TO GRAVITY WITH YELLOW COLOR URINE , WILL CONT TO MONITOR CLOSELY
[2018-08-18 20:00] VITALS: BP 135/91
[2018-08-18] MEDS: ATORVASTATIN 10 MG TABLET GT SCH (22:57)
[2018-08-19] VITALS (7 sets, daily range): BP systolic 114–155; BP diastolic 74–106
[2018-08-19] MEDS: IPRATROPIUM NEB FS 0.5 MG/2.5 ML AMPUL.NEB NEB SCH ×6 (01:39→23:48)
[2018-08-19] MEDS: IV NS 0.9% 1,000 ML IV PRN ×2 (03:24→18:22)
[2018-08-19 07:18] LABS: BASOPHILS % (AUTO) 0.6 % (0.0-2.0); EOSINOPHILS % (AUTO) 3.5 % (0.0-6.0); HEMATOCRIT 39 % (39-51); HEMOGLOBIN 12.7 g/dL (13.5-17.5); LYMPHOCYTES # (AUTO) 1.2 /CMM (0.8-4.8); LYMPHOCYTES % (AUTO) 16.8 % (20.0-44.0); MEAN CORPUSCULAR HGB CONC 33 g/dl (31.0-36.0); MEAN CORPUSCULAR VOLUME 95 fL (80-96); MONOCYTES # (AUTO) 0.8 /CMM (0.1-1.30); MONOCYTES % (AUTO) 11.6 % (2.0-12.0); NEUTROPHILS # (AUTO) 4.7 /CMM (1.8-8.9); NEUTROPHILS % (AUTO) 67.5 % (43.0-81.0); PLATELET COUNT (AUTO) 136 /CMM (150-450); RED BLOOD CELL COUNT(AUTO) 4.08 MIL/uL (4.5-6.0)
[2018-08-19 07:38] LABS: POTASSIUM 3.8 mmol/L (3.5-5.1)
[2018-08-19] MEDS: BLOOD SUGAR DIAGNOSTIC 1 EACH STRIP VI SCH ×4 (07:51→21:24)
[2018-08-19] MEDS: MULTIVIT W/MINERALS 1 TAB TABLET PO SCH (08:24)
[2018-08-19] MEDS: DOCUSATE SODIUM LIQ 100 MG/10 ML UDC GT SCH ×2 (08:24→17:28)
[2018-08-19] MEDS: TAMSULOSIN 0.4 MG CAP.SR.24H GT SCH ×2 (08:25→17:29)
[2018-08-19] MEDS: LEVETIRACETAM (250 MG) 250 MG TABLET PO SCH ×2 (08:25→21:13)
[2018-08-19] MEDS: PANTOPRAZOLE 40 MG TABLET.DR PO SCH (08:26)
[2018-08-19] MEDS: METOPROLOL TARTRATE 25 MG TABLET GT SCH (08:27)
[2018-08-19] MEDS: BETHANECHOL CHLORIDE (25 MG) 25 MG TABLET PO SCH ×2 (08:34→17:29)
[2018-08-19] MEDS: DILTIAZEM HCL CD 180 MG PO SCH (08:34)
[2018-08-19] MEDS: ENOXAPARIN SODIUM 40 MG/0.4 ML DISP.SYRIN SQ SCH (08:35)
[2018-08-19] MEDS: CLOTRIMAZOLE 1% 15 GM TUBE TP SCH ×2 (08:41→17:30)
[2018-08-19] MEDS: JEVITY 1.2 CAL 1,000 ML BOTTLE GT PRN (11:02)
[2018-08-19 11:15] LABS: ABG BASE EXCESS 3.7 mmol/L; ABG OXYGEN SATURATION 97.6 % (92.0-98.5); ABG PCO2 48.9 mmHg (35.0-45.0); ABG PH 7.398 (7.350-7.450); ABG PO2 107.6 mmHg (75.0-100.0); AaDO2 85.1 mmHg; COHb 0.4 % (0.5-1.5); MetHb 0.5 % (0.0-1.5); O2Hb 96.7 % (94.0-97.0); SITE, ABG Right Radial
[2018-08-19] MEDS: ALBUTEROL HALF STRENGTH 1.25 MG/3 ML VIAL.NEB NEB SCH ×4 (11:25→23:47)
[2018-08-19] MEDS: ASPIRIN 81 MG TAB.CHEW GT SCH (17:29)
--- NOTE | 2018-08-19 18:23 | NUR ---
MACHINE I CUTTER NOTES PT TOLERATED MIDLINE INSERTION. NS @75ML/HR INFUSING VIA JOLENE MIDLINE #18.
--- NOTE | 2018-08-19 18:57 | NUR ---
TIP PRINTER END OF SHIFT NOTES ENDORSED PT TO PM NURSE FOR OANH. PT STABLE. NO SIGNIFICANT CHANGES NOTED.
--- NOTE | 2018-08-19 19:11 | NUR ---
BLOW DOWN HELPER NOTES PT HAD EPISODE OF VTACH. PHYSICIAN [facility] VANI CONTACTED. DR MEEKS CONTACTED. WILL CONT TO MONITOR.
--- NOTE | 2018-08-19 19:20 | NUR ---
SURVEILLANCE SENSOR OFFICER NOTES, DR MEEKS REPLIED THAT IS NOT HIS PATIENT, WILL F/U WITH MD SAMPLE FINISHER.
--- NOTE | 2018-08-19 19:30 | NUR ---
PEER FINANCIAL COUNSELOR NOTE , PATIENT IN BED , WITH TRACH IN COOL AEROSOL WITH 35% OF O2 , NO SOB NOTED AT THIS TIME TRACH SUCTION DONE, SHALLOW BREATHING, PER STEPHANIA HURTADO, CLINICAL MANAGER AWARE, KEEP HOB ELEVATED AT ALL TIME , ON G TUBE FEEDING AT 70 ML PER HOUR , TOLERATED WELL, WITH MINIMAL RESIDUAL THIS TIME, WITH CONDOM CATH TO GRAVITY WITH YELLOW COLOR URINE , PER STEPHANIA HURTADO PATIENT JUST HAD AN EPISODE OF VTACH AT 0911, VANI AND JEANNA INFORMED, WILL F/U, PATIENT AT THIS TIME A-FLUTER HIS BASELINE HR AT 80S AT THIS TIME, BED LOCKED AND LOWEST POSITION ,WILL CONTINUE TO MONITOR CLOSELY.
--- NOTE | 2018-08-19 19:50 | NUR ---
BINDER TECHNICIAN NOTES, IRINA SALDANA INFORMED THAT PATIENT HAD A SHORT EPISODE OF VTACH, AND KENA INFORMED, NO REPLY FROM KENA NOT IN THE CASE, AND STATED NOT HIS PATIENT, INFORMED ALSO THE LEVEL FOR POTASSIUM THIS MORNING AND NO RECORD FOR MAGNESIUM, AND SHE REPLIED WITH NEW ORDER FOR MG AND POTASSIUM LEVEL AT THIS TIME, NOTED AND CARRIED OUT.
[2018-08-19 20:13] LABS: MAGNESIUM 1.7 mg/dL (1.8-2.4); POTASSIUM 4.1 mmol/L (3.5-5.1)
--- NOTE | 2018-08-19 20:53 | NUR ---
TUBE TESTER NOTES, REPORTED LEVELS FOR POTASSIUM 4.1 AND MAGNESIUM 1.7 TO SHANA AREVALO SHERIFF'S OFFICER AND RECEIVED A NEW ORDER FOR MAGNESIUM 2GRAMS IV ONCE, NOTED AND CARRIED OUT.
[2018-08-19] MEDS ORDERED: Magnesium 1GM/D5W 100ML PREMIX PIGGYBACK IV ONE (21:00)
[2018-08-19] MEDS: ATORVASTATIN 10 MG TABLET GT SCH (21:13)
[2018-08-19] MEDS: *INSULIN REGULAR(HUMULIN R)HUM 100 UNIT/ML VIAL SQ PRN (21:25)
[2018-08-19] MEDS: Magnesium 1GM/D5W 100ML PREMIX 100 ML IV SCH ×2 (21:33→22:41)
[2018-08-20] VITALS: BP 140/75
[2018-08-20] MEDS: ALBUTEROL HALF STRENGTH 1.25 MG/3 ML VIAL.NEB NEB SCH ×4 (03:38→15:20)
[2018-08-20] MEDS: IPRATROPIUM NEB FS 0.5 MG/2.5 ML AMPUL.NEB NEB SCH ×4 (03:38→15:20)
[2018-08-20] MEDS: JEVITY 1.2 CAL 1,000 ML BOTTLE GT PRN (03:47)
[2018-08-20 04:00] VITALS: BP 156/96
--- NOTE | 2018-08-20 06:43 | NUR ---
EXECUTIVE COORDINATOR NOTE , PATIENT IN BED , SLEEPING AT THIS TIME, WITH TRACH IN COOL AEROSOL WITH 35% OF O2 , NO SOB NOTED AT THIS TIME TRACH, CONTINUE A-FLUTTER WITH HR IN 110S AT THIS TIME, NO MORE EPISODE SOF VTACH DURING THE NIGHT AND NO SIGNIFICANT CHANGE IN CONDITION, FREQUENT SUCTIONING DUE TO COPIOUS SECRETIONS, KEEP HOB ELEVATED AT ALL TIME , ON JEVITY 1.2 TUBE FEEDING AT 70ML/ HR , TOLERATED WELL, WITH MINIMAL RESIDUAL A THIS TIME, WITH CONDOM CATH TO GRAVITY WITH YELLOW COLOR URINE, , BED LOCKED AND LOWEST POSITION, WILL ENDORSE CONTINUITY OF CARE TO ONCOMING NURSE.
[2018-08-20 07:12] LABS: BASOPHILS % (AUTO) 0.4 % (0.0-2.0); EOSINOPHILS % (AUTO) 6.1 % (0.0-6.0); HEMATOCRIT 38 % (39-51); HEMOGLOBIN 12.3 g/dL (13.5-17.5); MEAN CORPUSCULAR HGB CONC 33 g/dl (31.0-36.0); MEAN CORPUSCULAR VOLUME 94 fL (80-96); MONOCYTES # (AUTO) 0.7 /CMM (0.1-1.30); MONOCYTES % (AUTO) 12.4 % (2.0-12.0); NEUTROPHILS # (AUTO) 3.5 /CMM (1.8-8.9); NEUTROPHILS % (AUTO) 63.1 % (43.0-81.0); PLATELET COUNT (AUTO) 127 /CMM (150-450); RED BLOOD CELL COUNT(AUTO) 3.98 MIL/uL (4.5-6.0); WHITE BLOOD COUNT (AUTO) 5.5 K/uL (4.3-11.0)
[2018-08-20 07:16] LABS: CALCIUM, SERUM 7.9 mg/dL (8.5-10.1); POTASSIUM 3.8 mmol/L (3.5-5.1)
--- NOTE | 2018-08-20 07:30 | NUR ---
DOCUMENTUM CONSULTANT INITIAL NOTES RECEIVED PT IN BED, OBTUNDED RESPONDS TO PAINFUL STIMULI. ON TELE, AFLUTTER 100-120. ON COOL AEROSOL O2 99%. IV FLUIDS INFUSING VIA JOLENE MIDLINE NS @75ML/HR. JEVITY FEEDING RUNNING VIA GT. PT ON KCI MATTRESS. SIDE RAILS PADDED FOR SEIZURE PRECAUTIONS. BED IN LOCKED/LOWEST POSITION. CALL LIGHT IN REACH. WILL CONT TO MONITOR.
[2018-08-20 08:00] VITALS: BP 120/75
[2018-08-20] MEDS: BLOOD SUGAR DIAGNOSTIC 1 EACH STRIP VI SCH ×3 (08:26→17:47)
[2018-08-20] MEDS: DILTIAZEM HCL CD 180 MG PO SCH (08:27)
[2018-08-20] MEDS: BETHANECHOL CHLORIDE (25 MG) 25 MG TABLET PO SCH ×2 (08:27→16:58)
[2018-08-20] MEDS: MULTIVIT W/MINERALS 1 TAB TABLET PO SCH (08:27)
[2018-08-20] MEDS: TAMSULOSIN 0.4 MG CAP.SR.24H GT SCH ×2 (08:27→16:58)
[2018-08-20] MEDS: METOPROLOL TARTRATE 25 MG TABLET GT SCH (08:28)
[2018-08-20] MEDS: PANTOPRAZOLE 40 MG TABLET.DR PO SCH (08:28)
[2018-08-20] MEDS: LEVETIRACETAM (250 MG) 250 MG TABLET PO SCH (08:28)
[2018-08-20] MEDS: DOCUSATE SODIUM LIQ 100 MG/10 ML UDC GT SCH ×2 (08:28→16:58)
[2018-08-20] MEDS: CLOTRIMAZOLE 1% 15 GM TUBE TP SCH (08:29)
[2018-08-20] MEDS: ENOXAPARIN SODIUM 40 MG/0.4 ML DISP.SYRIN SQ SCH (08:30)
[2018-08-20] MEDS ORDERED: CLOT15CR35 TP (13:08)
[2018-08-20] MEDS ORDERED: LEVE250T2 PO (13:08)
--- NOTE | 2018-08-20 14:31 | NUR ---
SCRAP DROP ENGINEER NOTES NOTIFIED DAUGHTER SAMMY OSORIO OF PT'S TRANSFER TO [facility].
[2018-08-20 16:00] VITALS: BP_SYST 120; BP_SYST 131; BP_DIAS 68; BP_DIAS 75
--- NOTE | 2018-08-20 16:30 | NUR ---
MS RN NOTES GAVE REPORT TO BRYANT AGGARWAL AT [facility].
--- NOTE | 2018-08-20 18:27 | NUR ---
MS RN NOTES MIDLINE REMOVED. FAMILY NOTIFIED OF TRANSFER. REPORT/DISCHARGE INSTRUCTIONS GIVEN TO AMBULANCE. VS STABLE. BELONGINGS SENT WITH PT. PICS TAKEN OF WOUNDS. ID BAND REMOVED. PT TOLERATED. STABLE ON TPIECE. O2 SAT WNL.
== END 2018-08-20 18:16 | DRG 720 ==
LOC: ER 09:59 → TELE-TD 10:50 → TELE1 08-16 09:50 → MEDSG1 08-20 10:17
PROVIDERS: ADMIT Nurse Practitioner Acute Care; ATTEND Nurse Practitioner Acute Care
PROC: B546ZZA Ultrasonography of Right Subclavian Vein, Guidance (ICD-10-PCS; principal; 2018-08-19)
PROC: 05H533Z Insertion of Infusion Device into Right Subclavian Vein, Percutaneous Approach (ICD-10-PCS; principal; 2018-08-19)
DX: A41.9 Sepsis, unspecified organism (principal); G93.41 Metabolic encephalopathy; G91.9 Hydrocephalus, unspecified; J96.10 Chronic respiratory failure, unspecified whether with hypoxia or hypercapnia; E44.0 Moderate protein-calorie malnutrition; J18.9 Pneumonia, unspecified organism; R53.2 Functional quadriplegia; D68.59 Other primary thrombophilia; H70.93 Unspecified mastoiditis, bilateral; E87.1 Hypo-osmolality and hyponatremia; E78.5 Hyperlipidemia, unspecified; I48.91 Unspecified atrial fibrillation; D63.8 Anemia in other chronic diseases classified elsewhere; I10 Essential (primary) hypertension; I70.0 Atherosclerosis of aorta; K21.9 Gastro-esophageal reflux disease without esophagitis; R13.10 Dysphagia, unspecified; Z79.01 Long term (current) use of anticoagulants; Z79.82 Long term (current) use of aspirin; Z79.51 Long term (current) use of inhaled steroids; Z79.899 Other long term (current) drug therapy; H70.90 Unspecified mastoiditis, unspecified ear; Z98.890 Other specified postprocedural states; R56.9 Unspecified convulsions; K94.23 Gastrostomy malfunction; Y83.3 Surgical operation with formation of external stoma as the cause of abnormal reaction of the patient, or of later complication, without mention of misadventure at the time of the procedure; Y92.129 Unspecified place in nursing home as the place of occurrence of the external cause; J98.11 Atelectasis
CPT/HCPCS: 31720; 36415; 36569; 36600; 70450-TC; 71045-TC; 80048-TC; 80053-TC; 80061-TC; 80076-TC; 81000-TC; 82803-TC; 82962-TC; 83605-TC; 83735-TC; 84100-TC; 84132-TC; 84443-TC; 84484-TC; 85025-TC; 85652-TC; 85730-TC; 87040-TC; 87081-TC; 87086-TC; 87806; 93970-TC; 94640-TC; 94760-TC; 94799-TC; 95819-TC; A4349; A4623; A7526; G0378; J0133; J0696; J1650; J1815; J1953; J2270; J3370; J3475; J3490; J7030; J7060